=== PATIENT | female | born 1950 | race Caucasian/White ===

== ENCOUNTER 2018-09-29 18:23 | Outpatient (REF) | payer MEDICARE, SELFPAY ==
[2018-09-29 21:33] LABS: Absolute Basophil Count 0.04 k/cumm (0.0-0.2); Absolute Eosinophil Count 0.03 k/cumm (0.0-0.7); Absolute Lymphocyte Count 0.95 k/cumm (1.2-3.4); Absolute Monocyte Count 0.26 k/cumm (0.11-0.7); Absolute Neutrophil Count 4.31 k/cumm (1.2-6.7); Basophils % 0.7; Eosinophils % 0.5; Mean Corp. HGB Concentration 32.4 g/dL (32.0-36.0); Mean Corpuscular Hemoglobin 21.5 pg (27.0-33.0); Mean Corpuscular Volume 66.3 fL (80-95); Mean Platelet Volume 10.1 fL (8.0-11.0); Monocytes % 4.7; Neutrophils % 77.1; Platelet Count 349 x1000/uL (130-400); RBC 5.58 m/cumm (4.00-5.20); RBC Distribution Width 17.1 % (11.7-14.6); White Blood Cell Count 5.59 k/cumm (4.4-10.8)
[2018-09-29 21:41] LABS: Iron 96 ug/dL (50-175); Total Iron Binding Capacity 329 ug/dL (250-450); Transferrin Sat 29 % (15-50)
[2018-09-29 21:56] LABS: ALT 24 U/L (12-78); AST 25 U/L (15-37); Albumin 3.9 g/dL (3.4-5.0); Alkaline Phosphatase 63 U/L (46-116); Anion Gap 9.8 mmol/L (3-11); BUN 14 mg/dL (7-18); Bilirubin, Total 0.8 mg/dL (0.2-1.0); CO2 30.2 mmol/L (21.0-32.0); CREATININE 0.73 mg/dL (0.55-1.02); Calcium 9.1 mg/dL (8.5-10.1); Chloride 103 mmol/L (98-107); Ferritin 76 ng/mL (8-388); Glucose 99 mg/dL (70-100); Potassium 3.9 mmol/L (3.5-5.1); Sodium 143 mmol/L (136-145); TSH (W/Ref FT4) 3.24 uIU/mL (0.358-3.74); Total Protein 7.9 g/dL (6.4-8.2)
[2018-09-29 23:22] LABS: Diff Comment RBC Morph Reviewed
[2018-09-29 23:23] LABS: Anisocytosis 2+; Hypochromasia 2+; Microcytosis 3+; Poikilocytes 2+; Polychromasia Present
== END 2018-09-29 18:43 ==
LOC: NCHCN 18:23
PROVIDERS: PCP Nurse Practitioner Family; Visit Provider Nurse Practitioner Family
DX: R03.0 Elevated blood-pressure reading, without diagnosis of hypertension (principal); E03.9 Hypothyroidism, unspecified; R71.8 Other abnormality of red blood cells; R42 Dizziness and giddiness; J34.89 Other specified disorders of nose and nasal sinuses; E78.5 Hyperlipidemia, unspecified
CPT/HCPCS: 80053; 82728; 83540; 83550; 83735; 84443; 85025

== ENCOUNTER 2018-10-02 01:07 | Outpatient (CLI) | payer MEDICARE, SELFPAY | END 2018-10-02 01:27 | PROVIDERS: PCP Nurse Practitioner Family; Visit Provider Nurse Practitioner Family | DX: R42 Dizziness and giddiness (principal); I49.3 Ventricular premature depolarization; I49.1 Atrial premature depolarization | CPT/HCPCS: 93225 ==

== ENCOUNTER 2018-10-06 12:45 | Outpatient (CLI) | payer MEDICARE, SELFPAY ==
--- NOTE | 2018-10-08 18:36 | HOLTER_ITS ---
Date of dictation: October 08, 2018 Study Indication: Dizziness Requesting Provider: Kelsey Jackson N.P. Findings: The patient was monitored for 2 days. The baseline rhythm was sinus rhythm. Average heart rate 81 bpm, range 63-109 bpm. There was rare ectopy, 83 PVCs, and 109 PACs. There was no ventricular tachycardia. There were 3 episodes supraventricular tachycardia, the longest 14 beats, the fastest 162 bpm. There were no pauses greater than 3 seconds. There was no higher degree heart block. There were no patient events. FINAL INTERPRETATION: Rare atrial arrhythmias, asymptomatic.
== END 2018-10-06 13:05 ==
PROVIDERS: PCP Nurse Practitioner Family; Visit Provider Nurse Practitioner Family
DX: R42 Dizziness and giddiness (principal); I49.3 Ventricular premature depolarization; I49.1 Atrial premature depolarization
CPT/HCPCS: 93226

== ENCOUNTER 2018-10-20 14:24 | Outpatient (REF) | payer MEDICARE, OTHER, SELFPAY ==
[2018-10-20 21:28] LABS: Absolute Basophil Count 0.06 k/cumm (0.0-0.2); Absolute Eosinophil Count 0.07 k/cumm (0.0-0.7); Absolute Lymphocyte Count 1.12 k/cumm (1.2-3.4); Absolute Monocyte Count 0.37 k/cumm (0.11-0.7); Absolute Neutrophil Count 3.03 k/cumm (1.2-6.7); Basophils % 1.3; Eosinophils % 1.5; HCT 34.8 % (36.0-46.0); HGB 11.4 g/dL (12.0-15.5); Lymphocytes % 24.1; Mean Corp. HGB Concentration 32.8 g/dL (32.0-36.0); Mean Corpuscular Hemoglobin 21.6 pg (27.0-33.0); Mean Platelet Volume 10.4 fL (8.0-11.0); Neutrophils % 65.1; Platelet Count 296 x1000/uL (130-400); RBC 5.27 m/cumm (4.00-5.20); RBC Distribution Width 16.6 % (11.7-14.6); White Blood Cell Count 4.65 k/cumm (4.4-10.8)
[2018-10-20 22:52] LABS: Microcytosis 1+
[2018-10-27 09:01] LABS: Hemoglobin S Screen Neg (NEG)
== END 2018-10-20 14:44 ==
LOC: NCHCN 14:24
PROVIDERS: PCP Nurse Practitioner Family; Visit Provider Nurse Practitioner Family
DX: I47.1 Supraventricular tachycardia (principal); R71.8 Other abnormality of red blood cells; R03.0 Elevated blood-pressure reading, without diagnosis of hypertension; R42 Dizziness and giddiness; J34.89 Other specified disorders of nose and nasal sinuses
CPT/HCPCS: 85025; 85660

== ENCOUNTER 2018-10-28 13:27 | Outpatient (REF) | payer MEDICARE, OTHER, SELFPAY | END 2018-10-28 13:47 | LOC: NCHCN 13:27 | PROVIDERS: PCP Nurse Practitioner Family; Visit Provider Nurse Practitioner Family | DX: R69 Illness, unspecified (principal) | CPT/HCPCS: 83020; 85660 ==

== ENCOUNTER 2018-10-29 12:36 | Outpatient (REF) | payer MEDICARE, OTHER, SELFPAY ==
[2018-10-31 15:34] LABS: Hemoglobinopathy Interpretat Interpretation:
== END 2018-10-29 12:56 ==
LOC: NCHCN 12:36
PROVIDERS: PCP Nurse Practitioner Family; Visit Provider Nurse Practitioner Family
DX: I47.1 Supraventricular tachycardia (principal); R71.8 Other abnormality of red blood cells; R03.0 Elevated blood-pressure reading, without diagnosis of hypertension
CPT/HCPCS: 83020

== ENCOUNTER 2019-03-28 09:48 | Emergency (ER) | payer MEDICARE, SELFPAY ==
[2019-03-28 09:51] VITALS: BP 164/90; PULSE 74; RESP 16; TEMP 37.3; O2SAT 99
[2019-03-28 09:59] VITALS: RESP 16
--- NOTE | 2019-03-28 10:15 | W.ED.GENAD ---
Discharge Plan Disposition Patient Disposition: HOME Condition: Improving Discharge Details Chief Complaint: GenMedical Clinical Impression: Fatigue, UTI (urinary tract infection), Stress Primary Care Provider: Kelsey Jackson ED Provider: Romina Noe Home Meds and New Rx's Prescriptions: New cephalexin [Keflex] 500 mg capsule 500 mg PO BID 7 Days Qty: 14 RF: 0 Continued levothyroxine 50 mcg Tablet 50 mcg PO DAILY RF: 0 simvastatin 20 mg Tablet 20 mg PO DAILY RF: 0 Discharge Instructions Instructions: Urinary Tract Infection in Women (ED), Fatigue (ED) Additional Instructions: Take the antibiotics as directed until finished. Call your primary care doctor on Saturday morning to schedule a follow up appointment for re-evaluation. Return to the emergency department if you develop any worsening or new concerning symptoms. Discharge Data Discharge Date/Time-TO BE ENTERED AT DEPARTURE: 03/28/19 14:44 Discharge Physician: Romina Noe Medical Decision Making 68 yo F with a history of hypothyroidism, hyperlipidemia and depression who presents with lightheadedness, nausea, decreased appetite and fatigue for the past 4 days. She admits to increased stress with lack of sleep for the past 2 weeks. Denies suicidal ideation. She appears fatigued but nontoxic. No acute findings on exam. Normal lung sounds. No focal deficits. Differential diagnosis includes ACS, pneumonia, UTI, electrolyte abnormality, dehydration, depression, acute distress. Will place an IV, bolus IV fluids, screening labs including TSH, EKG, chest x-ray. Denies any spinning sensation and has no focal deficits also presentation not consistent with CVA. EKG notes a rate of 76, sinus, no acute ST ischemic changes. 1145 -- labs and imaging reviewed -normal white blood cell count and hemoglobin. Normal electrolytes. Troponin negative. TSH mildly elevated at 4.85 with normal T4. Urinalysis notes 3-5 WBCs, urine culture sent. Chest x-ray negative for pneumonia. Patient states she much better with fluids. Will finish IV fluids, give a tray of food and reassess. 1300 --patient feels much better and is requesting to go home. Will treat possible UTI with Keflex. She is advised to follow-up with her primary care doctor for reevaluation and to return here at any time if worse. Medical Records Medical records reviewed: Yes I reviewed the patient's medical records. Imaging Data Radiologic Study: Radiologist's impression: XR Chest, 2 Views EXAM DATE/TIME: 03/28/2019 10:15 AM CLINICAL HISTORY: 68 years old, female; Cough and fever; Patient HX: Cough, and slight fever yesterday, fatigue since Saturday. TECHNIQUE: Imaging protocol: XR of the chest, 2 views. COMPARISON: No relevant prior studies available. FINDINGS: Emphysematous lungs noted. No pneumothorax or pleural effusion seen. The pressure was normal in size. The bones are grossly intact. IMPRESSION: Emphysematous lung changes. No focal consolidation seen. Lab Data Lab results reviewed: Yes I reviewed the patient's lab results. 03/28/19 10:35 Urine - Reflex from Ua Urine Culture - Pending Laboratory Tests Range/Units 03/28/19 03/28/19 03/28/19 10:15 10:30 10:30 WBC (4.4-10.8) k/cumm 5.41 RBC (4.00-5.20) m/cumm 5.54 H Hgb (12.0-15.5) g/dL 12.0 Hct (36.0-46.0) % 36.5 MCV (80-95) fL 65.9 L MCH (27.0-33.0) pg 21.7 L MCHC (32.0-36.0) g/dL 32.9 RDW (11.7-14.6) % 16.1 H Plt Count (130-400) x1000/uL 336 MPV (8.0-11.0) fL 9.1 Immature Gran % 0.2 Neutrophils % 73.7 Lymphocytes % 19.4 Monocytes % 5.4 Eosinophils % 0.4 Basophils % 0.9 Absolute Neutrophils (1.2-6.7) k/cumm 3.99 Absolute Lymphocytes (1.2-3.4) k/cumm 1.05 L Absolute Monocytes (0.11-0.7) k/cumm 0.29 Absolute Eosinophils (0.0-0.7) k/cumm 0.02 Absolute Basophils (0.0-0.2) k/cumm 0.05 Differential Comment Rbc morph reviewed RBC Morphology See below Polychromasia Present Hypochromasia 1+ Poikilocytosis 2+ Anisocytosis 2+ Sodium (136-145) mmol/L 143 Potassium (3.5-5.1) mmol/L 3.4 L Chloride (98-107) mmol/L 104 Carbon Dioxide (21.0-32.0) mmol/L 28.6 Anion Gap (3-11) mmol/L 10.4 BUN (7-18) mg/dL 15 Creatinine (0.55-1.02) mg/dL 0.80 Estimated GFR/1.73 m2 (mL/min/1.73m2) >= 60.00 Glucose (70-100) mg/dL 98 Calcium (8.5-10.1) mg/dL 9.1 Magnesium (1.8-2.4) mg/dL 2.1 Total Bilirubin (0.2-1.0) mg/dL 1.0 AST (15-37) U/L 13 L ALT (12-78) U/L 21 Alkaline Phosphatase (46-116) U/L 60 Troponin I (0.00-0.06) ng/mL < 0.05 Total Protein (6.4-8.2) g/dL 8.4 H Albumin (3.4-5.0) g/dL 4.1 TSH (0.36-3.74) uIU/mL 4.85 H Free T4 (0.76-1.46) ng/dL 1.04 Urine Color (Yellow) Urine Clarity (Clear) Urine pH (5-8) Ur Specific [place] (1.005-1.025) Urine Protein (Negative) mg/dL Urine Ketones (Negative) mg/dL Urine Blood (Negative) Urine Nitrite (Negative) Urine Bilirubin (Negative) Urine Urobilinogen (Up TO 0.2) EU/dL Ur Leukocyte Esterase (Negative) Urine RBC (0-2) Urine WBC (0-5) HPF Ur Epithelial Cells (Negative) HPF Urine Crystals (Negative) HPF Urine Bacteria (Negative) HPF Urine Casts (Negative) LPF Urine Mucus (Negative) Ur Culture Indicated? Urine Glucose (Negative) mg/dL Patient ABO/Rh Cancelled Range/Units 03/28/19 10:35 WBC (4.4-10.8) k/cumm RBC (4.00-5.20) m/cumm Hgb (12.0-15.5) g/dL Hct (36.0-46.0) % MCV (80-95) fL MCH (27.0-33.0) pg MCHC (32.0-36.0) g/dL RDW (11.7-14.6) % Plt Count (130-400) x1000/uL MPV (8.0-11.0) fL Immature Gran % Neutrophils % Lymphocytes % Monocytes % Eosinophils % Basophils % Absolute Neutrophils (1.2-6.7) k/cumm Absolute Lymphocytes (1.2-3.4) k/cumm Absolute Monocytes (0.11-0.7) k/cumm Absolute Eosinophils (0.0-0.7) k/cumm Absolute Basophils (0.0-0.2) k/cumm Differential Comment RBC Morphology Polychromasia Hypochromasia Poikilocytosis Anisocytosis Sodium (136-145) mmol/L Potassium (3.5-5.1) mmol/L Chloride (98-107) mmol/L Carbon Dioxide (21.0-32.0) mmol/L Anion Gap (3-11) mmol/L BUN (7-18) mg/dL Creatinine (0.55-1.02) mg/dL Estimated GFR/1.73 m2 (mL/min/1.73m2) Glucose (70-100) mg/dL Calcium (8.5-10.1) mg/dL Magnesium (1.8-2.4) mg/dL Total Bilirubin (0.2-1.0) mg/dL AST (15-37) U/L ALT (12-78) U/L Alkaline Phosphatase (46-116) U/L Troponin I (0.00-0.06) ng/mL Total Protein (6.4-8.2) g/dL Albumin (3.4-5.0) g/dL TSH (0.36-3.74) uIU/mL Free T4 (0.76-1.46) ng/dL Urine Color (Yellow) Yellow Urine Clarity (Clear) Clear Urine pH (5-8) 7.5 Ur Specific [place] (1.005-1.025) 1.015 Urine Protein (Negative) mg/dL Negative Urine Ketones (Negative) mg/dL Negative Urine Blood (Negative) Trace-intact H Urine Nitrite (Negative) Negative Urine Bilirubin (Negative) Negative Urine Urobilinogen (Up TO 0.2) EU/dL 0.2 Ur Leukocyte Esterase (Negative) Trace H Urine RBC (0-2) 0-2 Urine WBC (0-5) HPF 3-5 Ur Epithelial Cells (Negative) HPF Few Urine Crystals (Negative) HPF Negative Urine Bacteria (Negative) HPF Rare Urine Casts (Negative) LPF Negative Urine Mucus (Negative) Negative Ur Culture Indicated? Yes Urine Glucose (Negative) mg/dL Negative Patient ABO/Rh ECG Data Attestation: I personally reviewed and interpreted this ECG (s) as follows: Interpretation: Rate of 76, sinus, incomplete right bundle branch block. Left anterior fascicular block. No old EKG to compare. TN 186. QTc 454. HPI General Mode of arrival: ambulatory. Date/Time Provider Initiated Documentation: 03/28/19 09:51. Limitations to Documentation: no limitations. Information obtained by: patient. HPI Narrative: Patient is a 68-year-old female with a history of hypothyroidism, hyperlipidemia and depression who presents for lightheadedness, nausea, decreased appetite and fatigue for the past 4 days. She states she thought she had a fever a few days ago but took her temperature and was afebrile. She states her main complaints now are feeling fatigued and lightheaded. She admits to a nonproductive cough last night. She states she had a headache yesterday which was completely resolved with Motrin and has not had a headache since then. She states she drank peppermint tea for her symptoms. She denies vomiting, diarrhea, urinary symptoms, chest pain, shortness of breath, sore throat, ear pain or unilateral numbness or weakness. She states she has been under a significant amount of stress for the past 2 weeks for which she has not been sleeping. She denies any suicidal ideation. She denies any recent new meds or medication changes. Related Data Home Medications Medication Instructions Recorded Confirmed cephalexin [Keflex] 500 mg PO BID 7 Days #14 cap 03/28/19 levothyroxine 50 mcg PO DAILY 03/28/19 03/28/19 simvastatin 20 mg PO DAILY 03/28/19 03/28/19 Previous Rx's Medication Instructions Recorded cephalexin [Keflex] 500 mg PO BID 7 Days #14 cap 03/28/19 Allergies Allergy/AdvReac Type Severity Reaction Status Date / Time No Known Allergies Allergy Unverified 03/28/19 09:56 General Stated Complaint: GenMedical CONRADO: 3 Review of Systems Review of Systems All systems reviewed & are unremarkable except as noted in HPI and below Constitutional Reports as per HPI, Denies chills, Reports difficulty sleeping, Reports fatigue, Denies fever(s) and Reports poor appetite Eyes Denies blurry vision ENT Reports dizziness, Denies sore throat and Denies throat swelling Cardiovascular Denies chest pain and Denies dyspnea Respiratory Denies cough and Denies dyspnea Gastrointestinal Denies abdominal pain, Denies diarrhea, Reports nausea and Denies vomiting Genitourinary Denies hematuria and Denies dysuria Musculoskeletal Denies back pain and Denies numbness Integumentary/Breasts Denies lesions and Denies rash Neurologic Reports dizziness, Denies focal weakness and Denies numbness Endocrine Reports fatigue Allergic/Immunologic Denies throat swelling PFSH Medical History Depression (Chronic) Hx of hyperlipidemia (Acute) Hypothyroidism (Chronic) Surgical History No significant past surgical history (Acute) Social History Smoking/Tobacco Use Status: Never Drug use: Never Substance use type: does not use Do you feel safe at home: Yes Do you feel safe in your relationship?: Yes Additional Social history: lives with a friend Exam Const General: cooperative and no acute distress Orientation: alert, awake and oriented x3 HENMT Head: normal to inspection Face and sinus: normal facial exam Eyes General: appearance normal, both eyes and all related structures Pupils: PERRL EOM: EOM intact bilaterally Neck Neck: normal visual inspection and No submandibular swelling Lymphatic: no lymphadenopathy noted Chest Chest: normal inspection of the chest and no tenderness Resp Effort & Inspection: normal respiratory effort and able to speak in complete sentences Auscultation: clear to auscultation bilaterally Cardio Rate: regular rate Rhythm: regular rhythm GI Inspection: normal to inspection Palpation: soft, not firm, not rigid and nontender Auscultation: normal bowel sounds Back/Spine/Pelvis Thoracic/Lumbar Spine: thoracic and lumbar spine normal to inspection Skin General skin exam: no rashes or lesions noted Neuro General: alert, awake and oriented x3 Cranial Nerves: CN's II-XI intact bilaterally Cognition: normal cognition Speech: speech normal Motor: muscle tone normal throughout and strength 5/5 throughout Sensory Exam: no sensory deficits noted Extrem General: normal to inspection, full ROM, normal capillary refill, no calf tenderness bilaterally and no edema Psych Appearance: grossly normal Mental Status: mental status grossly normal Speech and Movement: speech and movement normal Affect: normal affect Course Vital Signs Temperature 99.1 F 03/28/19 09:51 Pulse 74 03/28/19 09:51 Respiratory Rate 16 03/28/19 09:51 Blood Pressure 164/90 H 03/28/19 09:51 Pulse Oximetry 99 03/28/19 09:51 Temperature 99.1 F 03/28/19 09:51 Temperature Source Skin 03/28/19 09:51 Pulse 74 03/28/19 09:51 Respiratory Rate 16 03/28/19 09:59 Respiratory Effort 03/28/19 10:02 Respiratory Depth Normal 03/28/19 09:59 Respiratory Pattern Normal 03/28/19 09:59 Blood Pressure 164/90 H 03/28/19 09:51 Pulse Oximetry 99 03/28/19 09:51 Oxygen Delivery Method Room Air 03/28/19 09:51 Oxygen Flow Rate 0 03/28/19 09:51 Pain Level 0 03/28/19 09:51
[2019-03-28] MEDS: Normal Saline 1,000 ML 1000 ML IV (10:35)
[2019-03-28 10:39] LABS: Abs Immature Grans 0.01 k/cumm (0.0-0.09); Absolute Basophil Count 0.05 k/cumm (0.0-0.2); Absolute Eosinophil Count 0.02 k/cumm (0.0-0.7); Absolute Lymphocyte Count 1.05 k/cumm (1.2-3.4); Absolute Monocyte Count 0.29 k/cumm (0.11-0.7); Absolute Neutrophil Count 3.99 k/cumm (1.2-6.7); Basophils % 0.9; Eosinophils % 0.4; HCT 36.5 % (36.0-46.0); Immature Grans % 0.2; Lymphocytes % 19.4; Mean Corp. HGB Concentration 32.9 g/dL (32.0-36.0); Mean Corpuscular Hemoglobin 21.7 pg (27.0-33.0); Mean Corpuscular Volume 65.9 fL (80-95); Mean Platelet Volume 9.1 fL (8.0-11.0); Monocytes % 5.4; Neutrophils % 73.7; Platelet Count 336 x1000/uL (130-400); RBC 5.54 m/cumm (4.00-5.20); RBC Distribution Width 16.1 % (11.7-14.6); White Blood Cell Count 5.41 k/cumm (4.4-10.8)
[2019-03-28 10:45] LABS: Bilirubin Negative (Negative); Blood Trace-intact (Negative); Clarity Clear (Clear); Glucose Negative (Negative); Ketones Negative (Negative); Leukocyte Esterase Trace (Negative); Nitrite Negative (Negative); Specific Gravity 1.015 (1.005-1.025); Urobilinogen 0.2 EU/dL (Up TO 0.2); pH 7.5 (5-8)
[2019-03-28 10:57] LABS: Bacteria Rare HPF (Negative); C & S Indicated? Yes; Casts Negative LPF (Negative); Crystals Negative HPF (Negative); Epithelial Cells Few HPF (Negative); Mucus Negative (Negative); RBC 0-2 (0-2)
--- NOTE | 2019-03-28 11:00 | DI.RAD_ITS ---
SYMPTOM/DIAGNOSIS: COUGH, FATIGUE, ? PNEUMONIA PA AND LATERAL CHEST: The heart is not enlarged. The lungs are clear with apparent minimal changes of scarring. No pleural effusion is seen. No evidence of consolidation. CONCLUSION: No evidence of acute disease.
[2019-03-28 11:02] LABS: ALT 21 U/L (12-78); AST 13 U/L (15-37); Albumin 4.1 g/dL (3.4-5.0); Alkaline Phosphatase 60 U/L (46-116); Anion Gap 10.4 mmol/L (3-11); BUN 15 mg/dL (7-18); CO2 28.6 mmol/L (21.0-32.0); Calcium 9.1 mg/dL (8.5-10.1); Chloride 104 mmol/L (98-107); Glucose 98 mg/dL (70-100); Magnesium 2.1 mg/dL (1.8-2.4); Potassium 3.4 mmol/L (3.5-5.1); Sodium 143 mmol/L (136-145); TSH (W/Ref FT4) 4.85 uIU/mL (0.36-3.74); Total Protein 8.4 g/dL (6.4-8.2)
[2019-03-28 11:03] LABS: Troponin I < 0.05 ng/mL (0.00-0.06)
[2019-03-28 11:09] LABS: Anisocytosis 2+; Diff Comment RBC Morph Reviewed; Hypochromasia 1+; Polychromasia Present
[2019-03-28 11:10] LABS: Poikilocytes 2+
[2019-03-28 11:11] VITALS: BP 134/77; PULSE 77; RESP 16; TEMP 37.5; O2SAT 97
--- NOTE | 2019-03-28 11:15 | DI.VRAD_ITS ---
EXAM: XR Chest, 2 Views EXAM DATE/TIME: 03/28/2019 10:15 AM CLINICAL HISTORY: 68 years old, female; Cough and fever; Patient HX: Cough, and slight fever yesterday, fatigue since Saturday. TECHNIQUE: Imaging protocol: XR of the chest, 2 views. COMPARISON: No relevant prior studies available. FINDINGS: Emphysematous lungs noted. No pneumothorax or pleural effusion seen. The pressure was normal in size. The bones are grossly intact. IMPRESSION: Emphysematous lung changes. No focal consolidation seen. Dictated and Authenticated by: Catracho Barbosa MD. Ordering:SHON Vanegas MD
[2019-03-28 11:20] LABS: FREE T4 1.04 ng/dL (0.76-1.46)
--- NOTE | 2019-03-28 12:56 | NUR.NOTE ---
pt provided meal tray Nursing Note:
[2019-03-28] MEDS: Cephalexin 500 MG CAP PO (14:34)
== END 2019-03-28 14:44 | disposition home or self-care (01) ==
PROVIDERS: Emergency Provider Physician Assistant; PCP Nurse Practitioner Family
DX: R53.83 Other fatigue (principal); R39.0 Extravasation of urine; R45.7 State of emotional shock and stress, unspecified; I45.19 Other right bundle-branch block; I44.5 Left posterior fascicular block
CPT/HCPCS: 36415; 80053; 86900; 86901; 93005; 96360; 99285; 71046; 81003; 81015; 83735; 84439; 84443; 84484; 85025; 87086; 93010

== ENCOUNTER 2019-03-31 12:24 | Outpatient (REF) | payer MEDICARE, SELFPAY ==
[2019-03-31 21:23] LABS: Anion Gap 8.5 mmol/L (3-11); BUN 18 mg/dL (7-18); CO2 28.5 mmol/L (21.0-32.0); CREATININE 0.68 mg/dL (0.55-1.02); Calcium 9.2 mg/dL (8.5-10.1); Chloride 106 mmol/L (98-107); Glucose 93 mg/dL (70-100); Sodium 143 mmol/L (136-145)
== END 2019-03-31 12:44 ==
LOC: NCHCN 12:24
PROVIDERS: PCP Nurse Practitioner Family; Visit Provider Nurse Practitioner Family
DX: R53.83 Other fatigue (principal); R53.81 Other malaise
CPT/HCPCS: 80048

== ENCOUNTER 2019-05-12 09:36 | Outpatient (REF) | payer MEDICARE, SELFPAY ==
[2019-05-12 12:38] LABS: TSH (W/Ref FT4) 2.66 uIU/mL (0.36-3.74)
== END 2019-05-12 09:56 ==
LOC: NCHCN 09:36
PROVIDERS: PCP Nurse Practitioner Family; Visit Provider Nurse Practitioner Family
DX: E03.9 Hypothyroidism, unspecified (principal)
CPT/HCPCS: 84443